=== PATIENT | female | born 1945 | race Caucasian/White ===

== ENCOUNTER 2019-12-01 01:51 | Inpatient (IN) ==
[2019-12-01] MEDS ORDERED: Naloxone 0.4 MG/ML INJ IVP PRN (04:58)
[2019-12-01] MEDS ORDERED: MethylPREDNISolone 40 MG/ML VIAL IVP STA (04:58)
[2019-12-01] MEDS ORDERED: Albuterol 2.5 MG/3 ML NEBULIZER IH PRN (04:58)
[2019-12-01] MEDS ORDERED: Nitroglycerin 0.4 MG TAB.SUBL SL PRN (04:58)
[2019-12-01] MEDS ORDERED: DilTIAZem 50 MG in 0.9 % Sodium Chloride 40 ML IVC SCH (05:15)
[2019-12-01 05:40] LABS: Basophils # 0.1 K/mcL (0.0-0.2); Basophils % 0.7 %; Eosinophils # 0.3 K/mcL (0.0-0.6); Eosinophils % 2.6 %; Hematocrit 35.9 % (35.3-44.9); Hemoglobin 11.4 g/dL (11.5-15.4); Immature Granulocytes % 0.3 % (0-4); Lymphocytes # 1.9 K/mcL (0.6-4.6); Lymphocytes % 17.5 %; Mean Corpuscular HGB Conc 31.8 g/dL (31.6-35.5); Mean Corpuscular Volume 88.2 fL (83.0-100.0); Mean Platelet Volume 11.1 fL (9.4-12.4); Monocytes # 0.7 K/mcL (0.0-1.3); Monocytes % 6.1 %; Neutrophils # 7.8 K/mcL (1.6-8.9); Platelet Count 241 K/mcL (140-400); Red Blood Count 4.07 M/mcL (3.82-4.97); Red Cell Distribution Width 14.3 % (11.5-14.5); Segmented Neutrophils % 72.8 %; White Blood Count 10.7 K/mcL (4.3-11.1)
[2019-12-01 05:44] LABS: INR 1.2; Prothrombin Time 13.9 Seconds (9.4-12.1)
[2019-12-01 05:58] LABS: Alanine Aminotransferase 20 Units/L (7-52); Albumin 3.9 g/dL (3.5-5.7); Albumin/Globulin Ratio 1.4 (1.1-2.2); Alkaline Phosphatase 99 Units/L (34-104); Aspartate Amino Transferase 13 Units/L (13-39); BUN/Creatinine Ratio 23 (6-26); Bilirubin,Total 0.9 mg/dL (0.3-1.0); Blood Urea Nitrogen 23 mg/dL (8-23); Calcium 9.4 mg/dL (8.6-10.3); Carbon Dioxide 28 mEq/L (23-29); Chloride 101 mEq/L (98-107); Chol/HDL Ratio 4.1 (0-4.9); Cholesterol 167 mg/dL (< 200); Globulin 2.7 g/dL (2.4-3.5); Glucose 111 mg/dL (70-105); HDL Cholesterol 41 mg/dL (40-59); LDL Cholesterol,Calculated 112 mg/dL (0-99); Magnesium 1.9 mg/dL (1.6-2.6); Osmolality,Calculated 294 (280-300); Phosphorous 3.9 mg/dL (2.7-4.5); Potassium 3.8 mEq/L (3.5-5.1); Sodium 140 mEq/L (136-145); Total Protein 6.6 g/dL (6.4-8.9); Triglycerides 72 mg/dL (< 150); eGFR For African Americans > 60 (> 60); eGFR For Non-African Americans 54 (> 60)
[2019-12-01] MEDS ORDERED: *HR* Heparin 5,000 UNIT/ML VIAL SQ SCH (06:00)
[2019-12-01] MEDS ORDERED: *HR* Heparin 5,000 UNIT/ML VIAL IVP PRN ×2 (06:10)
[2019-12-01] MEDS: Heparin 25,000 UNIT/250 ML D5W 25,000 UNIT/250 ML IV.SOLN IVC SCH (06:16)
[2019-12-01] MEDS: Ipratropium/Albuterol Neb 3 ML IH SCH ×4 (06:20→22:00)
[2019-12-01] MEDS ORDERED: tiZANidine 4 MG TABLET PO PRN (08:15)
[2019-12-01] MEDS ORDERED: cefTRIAXone 1,000 MG in Water for inj. (sterile) 10 ML IVP SCH (09:00)
[2019-12-01] MEDS ORDERED: cefTRIAXone 1,000 MG in 0.9 % Sodium Chloride Mini Bag 100 ML IVPB SCH (09:00)
[2019-12-01] MEDS ORDERED: NON-FORMULARY MEDICATION 1 EACH EACH (Fluticasone Propion/Salmeterol [Fluticasone-Salmeter IH SCH (09:00)
[2019-12-01] MEDS ORDERED: Furosemide 40 MG/4 ML VIAL IVP SCH (09:00)
[2019-12-01] MEDS ORDERED: Triamcinolone Acet 0.1% CRM 1 APPL GRAM TP SCH (09:00)
[2019-12-01] MEDS: DilTIAZem 50 MG in 0.9 % Sodium Chloride 40 ML IVC SCH ×2 (09:16→13:18)
[2019-12-01] MEDS: Cholecalciferol (D-3) 1,000 UNIT (25MCG) TABLET PO SCH (09:18)
[2019-12-01] MEDS: Metoprolol XL (24 HR) Succ 25 MG TAB.ER.24H PO SCH (09:18)
[2019-12-01] MEDS: amLODIPine 5 MG TABLET PO SCH (09:18)
[2019-12-01] MEDS: Furosemide 40 MG/4 ML VIAL IVP SCH ×2 (09:18→17:09)
[2019-12-01] MEDS: Aspirin 81 MG TAB.CHEW PO SCH (09:18)
[2019-12-01] MEDS: rOPINIRole 1 MG TABLET PO SCH ×3 (09:18→21:19)
[2019-12-01] MEDS: Budesonide/Formoterol 160/4.5 1 PUFF INH IH SCH ×2 (09:31→21:59)
[2019-12-01 09:44] LABS: Estimated Average Glucose 123 mg/dl
[2019-12-01] MEDS: Triamcinolone Acet 0.1% CRM 15 GM TUBE TP SCH (11:38)
[2019-12-01] MEDS ORDERED: Ipratropium/Albuterol Neb 3 ML IH SCH (12:00)
[2019-12-01] MEDS: Sucralfate 1 GM TABLET PO SCH (17:08)
[2019-12-01] MEDS ORDERED: 0.9 % Sodium Chloride 500 ML IVC ONE ×2 (17:22→19:24)
[2019-12-01] MEDS ORDERED: 0.9 % Sodium Chloride 500 ML ONE ×2 (17:23→18:29)
[2019-12-02] MEDS: Ipratropium/Albuterol Neb 3 ML IH SCH ×4 (04:29→22:41)
[2019-12-02] MEDS: Heparin 25,000 UNIT/250 ML D5W 25,000 UNIT/250 ML IV.SOLN IVC SCH (05:29)
[2019-12-02] MEDS: Metoprolol XL (24 HR) Succ 25 MG TAB.ER.24H PO SCH (06:29)
[2019-12-02 07:15] LABS: Hematocrit 33.5 % (35.3-44.9); Hemoglobin 10.5 g/dL (11.5-15.4); Mean Corpuscular HGB Conc 31.3 g/dL (31.6-35.5); Mean Corpuscular Hemoglobin 28.3 pg (28.0-33.3); Mean Corpuscular Volume 90.3 fL (83.0-100.0); Mean Platelet Volume 11.3 fL (9.4-12.4); Platelet Count 235 K/mcL (140-400); Red Blood Count 3.71 M/mcL (3.82-4.97); Red Cell Distribution Width 14.3 % (11.5-14.5)
[2019-12-02 07:22] LABS: White Blood Count 16.5 K/mcL (4.3-11.1)
[2019-12-02 07:32] LABS: Calcium 9.5 mg/dL (8.6-10.3)
[2019-12-02 07:34] LABS: Chol/HDL Ratio 3.7 (0-4.9)
[2019-12-02 07:47] LABS: Thyroid Stimulating Hormone 1.788 mcIU/mL (0.340-5.600)
[2019-12-02] MEDS ORDERED: Metoprolol XL (24 HR) Succ 25 MG TAB.ER.24H PO ONE (08:04)
[2019-12-02] MEDS: rOPINIRole 1 MG TABLET PO SCH ×3 (08:13→22:37)
[2019-12-02] MEDS: Furosemide 40 MG/4 ML VIAL IVP SCH ×2 (08:16→16:09)
[2019-12-02] MEDS: Sucralfate 1 GM TABLET PO SCH ×2 (08:16→16:10)
[2019-12-02] MEDS: Budesonide/Formoterol 160/4.5 1 PUFF INH IH SCH ×2 (10:23→22:40)
[2019-12-02] MEDS: amLODIPine 5 MG TABLET PO SCH (10:34)
[2019-12-02] MEDS: Cholecalciferol (D-3) 1,000 UNIT (25MCG) TABLET PO SCH (10:40)
[2019-12-02] MEDS: predniSONE 20 MG TABLET PO SCH (10:44)
[2019-12-02] MEDS: cefTRIAXone 2,000 MG in 0.9 % Sodium Chloride Mini Bag 100 ML IVPB SCH ×3 (10:45→14:40)
[2019-12-02] MEDS: Aspirin 81 MG TAB.CHEW PO SCH (10:46)
[2019-12-02] MEDS: Triamcinolone Acet 0.1% CRM 15 GM TUBE TP SCH (10:55)
[2019-12-02] MEDS: DilTIAZem CD (24hr) 120 MG CAP.ER.24H PO SCH (11:02)
[2019-12-02] MEDS: Apixaban 5 MG TABLET PO SCH (14:36)
[2019-12-02] MEDS ORDERED: *HR* Metoprolol 5 MG/5 ML VIAL IVP ONE (23:41)
[2019-12-03] MEDS: Ipratropium/Albuterol Neb 3 ML IH SCH ×5 (04:23→22:26)
[2019-12-03] MEDS: Apixaban 5 MG TABLET PO SCH ×2 (08:40→22:54)
[2019-12-03] MEDS: predniSONE 20 MG TABLET PO SCH (08:40)
[2019-12-03] MEDS: Aspirin 81 MG TAB.CHEW PO SCH (08:41)
[2019-12-03] MEDS: DilTIAZem CD (24hr) 120 MG CAP.ER.24H PO SCH (08:41)
[2019-12-03] MEDS: Sucralfate 1 GM TABLET PO SCH ×2 (08:41→15:36)
[2019-12-03] MEDS: Furosemide 40 MG/4 ML VIAL IVP SCH ×2 (08:42→17:59)
[2019-12-03] MEDS: rOPINIRole 1 MG TABLET PO SCH ×4 (11:11→22:54)
[2019-12-03] MEDS: Metoprolol XL (24 HR) Succ 25 MG TAB.ER.24H PO SCH (11:12)
[2019-12-03] MEDS: cefTRIAXone 2,000 MG in 0.9 % Sodium Chloride Mini Bag 100 ML IVPB SCH ×2 (11:13→11:34)
[2019-12-03] MEDS: Cholecalciferol (D-3) 1,000 UNIT (25MCG) TABLET PO SCH (11:13)
[2019-12-03] MEDS: Triamcinolone Acet 0.1% CRM 15 GM TUBE TP SCH (11:16)
[2019-12-03] MEDS: Budesonide/Formoterol 160/4.5 1 PUFF INH IH SCH ×2 (11:34→22:17)
[2019-12-03] MEDS ORDERED: *HR* Metoprolol 5 MG/5 ML VIAL IVP ONE (20:17)
[2019-12-04] MEDS ORDERED: *HR* Metoprolol 5 MG/5 ML VIAL IVP ONE (03:12)
[2019-12-04] MEDS: Ipratropium/Albuterol Neb 3 ML IH SCH ×2 (03:50→09:29)
[2019-12-04 04:51] LABS: Basophils % 0.1 %; Hematocrit 34.4 % (35.3-44.9); Hemoglobin 11.2 g/dL (11.5-15.4); Immature Granulocytes % 0.7 % (0-4); Lymphocytes # 1.5 K/mcL (0.6-4.6); Mean Corpuscular HGB Conc 32.6 g/dL (31.6-35.5); Mean Corpuscular Hemoglobin 28.1 pg (28.0-33.3); Mean Corpuscular Volume 86.4 fL (83.0-100.0); Mean Platelet Volume 11.3 fL (9.4-12.4); Monocytes # 0.7 K/mcL (0.0-1.3); Monocytes % 5.5 %; Neutrophils # 10.3 K/mcL (1.6-8.9); Platelet Count 282 K/mcL (140-400); Red Blood Count 3.98 M/mcL (3.82-4.97); Red Cell Distribution Width 14.5 % (11.5-14.5); Segmented Neutrophils % 81.7 %; White Blood Count 12.6 K/mcL (4.3-11.1)
[2019-12-04 05:10] LABS: Calcium 9.7 mg/dL (8.6-10.3); Potassium 3.3 mEq/L (3.5-5.1)
[2019-12-04] MEDS ORDERED: CefTRIAXone 2,000 MG VIAL ONE (07:16)
[2019-12-04] MEDS: cefTRIAXone 2,000 MG in 0.9 % Sodium Chloride Mini Bag 100 ML IVPB SCH (07:20)
[2019-12-04] MEDS: Furosemide 40 MG/4 ML VIAL IVP SCH (07:24)
[2019-12-04] MEDS: Metoprolol XL (24 HR) Succ 25 MG TAB.ER.24H PO SCH (07:26)
[2019-12-04] MEDS: Sucralfate 1 GM TABLET PO SCH (07:26)
[2019-12-04] MEDS: rOPINIRole 1 MG TABLET PO SCH (07:26)
[2019-12-04] MEDS: predniSONE 20 MG TABLET PO SCH (07:26)
[2019-12-04] MEDS: Cholecalciferol (D-3) 1,000 UNIT (25MCG) TABLET PO SCH (07:26)
[2019-12-04] MEDS: DilTIAZem CD (24hr) 120 MG CAP.ER.24H PO SCH (07:26)
[2019-12-04] MEDS: Apixaban 5 MG TABLET PO SCH (07:27)
[2019-12-04] MEDS: Aspirin 81 MG TAB.CHEW PO SCH (07:27)
[2019-12-04] MEDS: Triamcinolone Acet 0.1% CRM 15 GM TUBE TP SCH (07:27)
[2019-12-04] MEDS: Budesonide/Formoterol 160/4.5 1 PUFF INH IH SCH (09:28)
[2019-12-04 10:35] VITALS: BP 110/74
== END 2019-12-04 12:54 | disposition home or self-care (01) | DRG 201 ==
LOC: 2ANU → SUATTDRO 12-03 14:47
PROVIDERS: ADMIT Internal Medicine; ATTEND Internal Medicine

== ENCOUNTER 2021-10-05 10:54 | Observation (INO) ==
[2021-10-05] MEDS ORDERED: FLU Vac QV 21-22 (6Month+)/PF 0.5 ML SYRINGE IM ONE (14:14)
[2021-10-05] MEDS ORDERED: Ondansetron ODT 4 MG TAB.RAPDIS SL PRN (14:22)
[2021-10-05] MEDS ORDERED: Naloxone 0.4 MG/ML INJ IVP PRN ×2 (14:22→14:52)
[2021-10-05] MEDS ORDERED: Perflutren Lipid Microsphere 1.3 ML in 0.9 % Sodium Chloride 8.7 ML IVP PRN (14:32)
[2021-10-05] MEDS ORDERED: Metoprolol XL (24 HR) Succ 25 MG TAB.ER.24H PO SCH (17:00)
[2021-10-05 19:11] LABS: Bacteria,Urine Few per hpf (None-Few); Bilirubin,Urine Negative (Negative); Blood,Urine Negative (Negative); Clarity,Urine Clear (Clear); Color,Urine Light-Yellow (Yellow); Glucose,Urine (UA) Normal (Normal); Hyaline Casts,Urine Moderate per lpf (None Seen); Ketones,Urine Negative (Negative); Leukocyte Esterase,Urine Large (Negative); Nitrite,Urine Negative (Negative); PH,Urine 5.5 pH Units (5.0-8.0); Protein,Urine Negative (Neg-Trace); RBC,Urine 0-3 per hpf (0-3); Specific Gravity,Urine 1.014 (1.010-1.025); Squamous Epithelial Cell,Urine Few per hpf (None-Few); Transitional Epi Cells,Urine Few per hpf (None-Few); Urobilinogen,Urine Normal (Normal)
[2021-10-05 19:19] LABS: Sodium, Urine 116.4 mEq/L
[2021-10-05] MEDS: Apixaban 5 MG TABLET PO SCH (21:38)
[2021-10-05] MEDS: *HR* Metoprolol 5 MG/5 ML VIAL IVP PRN (21:41)
[2021-10-06 04:48] LABS: Basophils % 0.2 %; Eosinophils # 0.1 K/mcL (0.0-0.6); Eosinophils % 1.2 %; Hematocrit 31.6 % (35.3-44.9); Hemoglobin 9.5 g/dL (11.5-15.4); Immature Granulocytes % 1.1 % (0-4); Lymphocytes # 2.8 K/mcL (0.6-4.6); Lymphocytes % 25.9 %; Mean Corpuscular HGB Conc 30.1 g/dL (31.6-35.5); Mean Corpuscular Hemoglobin 25.2 pg (28.0-33.3); Mean Corpuscular Volume 83.8 fL (83.0-100.0); Mean Platelet Volume 11.2 fL (9.4-12.4); Monocytes # 0.8 K/mcL (0.0-1.3); Monocytes % 7.2 %; Nucleated Red Blood Cells 0.2 /100 WBC (0); Platelet Count 379 K/mcL (140-400); Red Blood Count 3.77 M/mcL (3.82-4.97); Red Cell Distribution Width 15.3 % (11.5-14.5); Segmented Neutrophils % 64.4 %; White Blood Count 10.9 K/mcL (4.3-11.1)
[2021-10-06 05:05] LABS: Calcium 8.6 mg/dL (8.6-10.3); Magnesium 2.1 mg/dL (1.6-2.6); Potassium 4.7 mEq/L (3.5-5.1)
[2021-10-06] MEDS ORDERED: DilTIAZem CD (24hr) 240 MG CAP.ER.24H PO SCH (09:00)
[2021-10-06] MEDS ORDERED: Metoprolol XL (24 HR) Succ 25 MG TAB.ER.24H PO SCH (09:00)
[2021-10-06] MEDS: Apixaban 5 MG TABLET PO SCH ×2 (10:35→21:26)
[2021-10-06] MEDS: *HR* Metoprolol 5 MG/5 ML VIAL IVP PRN (12:39)
[2021-10-06] MEDS: Sennosides/Docusate Sodium TABLET PO SCH ×2 (12:50→21:25)
[2021-10-06] MEDS: Metoprolol XL (24 HR) Succ 50 MG TAB.ER.24H PO SCH (21:25)
[2021-10-07] MEDS: Apixaban 5 MG TABLET PO SCH (07:40)
[2021-10-07] MEDS: Sennosides/Docusate Sodium TABLET PO SCH (07:40)
[2021-10-07] MEDS: Metoprolol XL (24 HR) Succ 50 MG TAB.ER.24H PO SCH (07:40)
[2021-10-07 07:51] VITALS: BP 120/83; PULSE 76; TEMP 98.4; O2SAT 100
== END 2021-10-07 11:49 | disposition home or self-care (01) ==
LOC: 3NENU
PROVIDERS: ADMIT Hospitalist; ATTEND Hospitalist